=== PATIENT | female | born 1980 | race Caucasian/White ===

== ENCOUNTER 2017-08-18 09:50 | Emergency (ER) | payer SELFPAY ==
--- NOTE | 2017-08-18 10:02 | ER Document Report ---
ED General - General Chief Complaint: Epigastric Pain Stated Complaint: EPIGASTRIC PAIN Time Seen by Provider: 08/18/17 10:02 Mode of Arrival: Ambulatory Information source: Patient Notes: 37 yr odl female presents with multiple complaints. Pt notes she is a smoker with a cough of 6 month duration, has had intermittent chest pain over the past few years and has had epiastric burning pain almost daily for the past few months as well. pt denies any productivity t othe cough, denies any fevers TRAVEL OUTSIDE OF THE [place] IN LAST 30 DAYS: No - HPI Onset: Other Onset/Duration: Persistent Quality of pain: Burning Severity: Mild Pain Level: 1 Associated symptoms: None Exacerbated by: Food Relieved by: Denies Similar symptoms previously: Yes Recently seen / treated by doctor: No - Related Data Allergies/Adverse Reactions: No Known Allergies Allergy (Verified 08/18/17 09:51) Past Medical History - Social History Smoking Status: Current Every Day Smoker Cigarette use (# per day): Yes Chew tobacco use (# tins/day): No Smoking Education Provided: Yes - Patient counselled regarding cessation for 4 minutes Frequency of alcohol use: Social Drug Abuse: None Family History: Reviewed & Not Pertinent Patient has suicidal ideation: No Patient has homicidal ideation: No - Past Medical History Cardiac Medical History: Reports: Hx Hypertension Renal/ Medical History: Denies: Hx Peritoneal Dialysis Past Surgical History: Reports: Hx Cholecystectomy, Hx Tubal Ligation - Immunizations Hx Diphtheria, Pertussis, Tetanus Vaccination: Yes Review of Systems - Review of Systems Notes: REVIEW OF SYSTEMS: CONSTITUTIONAL : Denies fever, chills, or sweats. Denies recent illness. EENT: Denies eye, ear, throat, or mouth pain or symptoms. Denies nasal or sinus congestion or discharge. Denies throat, tongue, or mouth swelling or difficulty swallowing. CARDIOVASCULAR: Admits to chronic chest pain RESPIRATORY: Admits to cough GASTROINTESTINAL: Admits to epigastric pain GENITOURINARY: Denies difficulty urinating, painful urination, burning, frequency, blood in urine, or discharge. FEMALE GENITOURINARY: Denies vaginal bleeding, heavy or abnormal periods, irregular periods. Denies vaginal discharge or odor. MUSCULOSKELETAL: Denies back or neck pain or stiffness. Denies joint pain or swelling. SKIN: Denies rash, lesions or sores. HEMATOLOGIC : Denies easy bruising or bleeding. LYMPHATIC: Denies swollen, enlarged glands. NEUROLOGICAL: Denies confusion or altered mental status. Denies passing out or loss of consciousness. Denies dizziness or lightheadedness. Denies headache. Denies weakness or paralysis or loss of use of either side. Denies problems with gait or speech. Denies sensory loss, numbness, or tingling. Denies seizures. PSYCHIATRIC: Denies anxiety or stress. Denies depression, suicidal ideation, or homicidal ideation. ALL OTHER SYSTEMS REVIEWED AND NEGATIVE. PHYSICAL EXAMINATION: GENERAL: Well-appearing, well-nourished and in no acute distress. HEAD: Atraumatic, normocephalic. EYES: Pupils equal round and reactive to light, extraocular movements intact, conjunctiva are normal. ENT: Nares patent, oropharynx clear without exudates. Moist mucous membranes. NECK: Normal range of motion, supple without lymphadenopathy LUNGS: Breath sounds clear to auscultation bilaterally and equal. No wheezes rales or rhonchi. HEART: Regular rate and rhythm without murmurs ABDOMEN: Soft, epigastric pain upon palpation Female : deferred Musculoskeletal: Normal range of motion, no pitting or edema. No cyanosis. NEUROLOGICAL: Cranial nerves grossly intact. Normal speech, normal gait. Normal sensory, motor exams PSYCH: Normal mood, normal affect. SKIN: Warm, Dry, normal turgor, no rashes or lesions noted. Dictation was performed using [employer] voice recognition software Physical Exam - Vital signs Vitals: Temp Pulse Resp BP Pulse Ox 98.8 F 94 17 166/108 H 98 08/18/17 09:54 08/18/17 09:54 08/18/17 09:54 08/18/17 09:54 08/18/17 09:54 Course - Re-evaluation Re-evalutation: 08/18/17 11:16 I have very low suspicion for any life-threatening issues given that this is all been chronic for months, lab work pending chest x-ray was performed. Patient appears to have GERD given pinpoint tenderness of the epigastric region 08/18/17 13:13 EKG chest x-ray noted no significant abnormality, patient overall looks well no significant improvement with gastric reflux cocktail. I will send her home on Pepcid. Patient otherwise is stable for discharge with follow-up with GI specialist After performing a Medical Screening Examination, I estimate there is LOW risk for RUPTURED ESOPHAGUS, PNEUMOTHORAX, PULMONARY EMBOLISM, ACUTE CORONARY SYNDROME, OR THORACIC AORTIC DISSECTION, thus I consider the discharge disposition reasonable. I have reevaluated this patient multiple times and no significant life threatening changes are noted. The patient and I have discussed the diagnosis and risks, and we agree with discharging home with close follow-up. We also discussed returning to the Emergency Department immediately if new or worsening symptoms occur. We have discussed the symptoms which are most concerning (e.g., bloody sputum, worsening pain or shortness of breath) that necessitate immediate return. - Vital Signs Vital signs: Temp Pulse Resp BP Pulse Ox 98.8 F 94 17 166/108 H 98 08/18/17 09:54 08/18/17 09:54 08/18/17 09:54 08/18/17 09:54 08/18/17 09:54 - Laboratory Result Diagrams: 08/18/17 10:40 08/18/17 10:40 Laboratory results interpreted by me: 08/18/17 10:40 Plt Count 149 L - Diagnostic Test Radiology reviewed: Image reviewed, Reports reviewed - EKG Interpretation by Ga EKG shows normal: Sinus rhythm, [place], Intervals, QRS Complexes Discharge - Discharge Clinical Impression: Cough, Encounter for smoking cessation counseling GERD (gastroesophageal reflux disease) Qualifiers: Esophagitis presence: with esophagitis Qualified Code(s): K21.0 - Gastro- esophageal reflux disease with esophagitis Condition: Stable Disposition: HOME, SELF-CARE Instructions: Reflux Disease (GERD) ([facility]) Prescriptions: Famotidine [Pepcid 20 mg Tablet] 20 mg PO DAILY #30 tablet Referrals: GABBIE ZUÑIGA MD [ACTIVE STAFF] - Follow up tomorrow
--- NOTE | 2017-08-18 10:44 | RADIOLOGY REPORT (SQ) ---
EXAM DESCRIPTION: CHEST PA/LAT COMPLETED DATE/TIME: 08/18/2017 10:32 am REASON FOR STUDY: cough COMPARISON: 11/26/2011 EXAM PARAMETERS: NUMBER OF VIEWS: two views TECHNIQUE: Digital Frontal and Lateral radiographic views of the chest acquired. RADIATION DOSE: NA LIMITATIONS: none FINDINGS: LUNGS AND PLEURA: No opacities, masses or pneumothorax. No pleural effusion. MEDIASTINUM AND HILAR STRUCTURES: No masses or contour abnormalities. HEART AND VASCULAR STRUCTURES: Heart normal size. No evidence for failure. BONES: No acute findings. HARDWARE: None in the chest. OTHER: No other significant finding. IMPRESSION: NO SIGNIFICANT RADIOGRAPHIC FINDING IN THE CHEST. TECHNICAL DOCUMENTATION: JOB ID: [id number] [employer]- All Rights Reserved
[2017-08-18 10:52] LABS: ABSOLUTE EOSINOPHILS # (AUTO) 0.1 10^3/uL (0.0-0.6); ABSOLUTE MONOCYTES (AUTO) 0.5 10^3/uL (0.1-1.4); ABSOLUTE NEUT (AUTO) 6.3 10^3/uL (1.7-8.2); BASOPHILS % (AUTO) 0.3 % (0-2); EOSINOPHILS % (AUTO) 1.2 % (0-6); HEMATOCRIT 43.2 % (36.0-47.0); HEMOGLOBIN 15.5 g/dL (12.0-15.5); HGB HCT DIFFERENCE 3.3; LYMPHOCYTES % (AUTO) 22.1 % (13-45); MEAN CORPUSCULAR HEMOGLOBIN 33.3 pg (27.0-33.4); MEAN CORPUSCULAR HGB CONC 35.8 g/dL (32.0-36.0); MEAN CORPUSCULAR VOLUME 93 fl (80-97); MONOCYTES % (AUTO) 5.7 % (3-13); RED BLOOD COUNT 4.65 10^6/uL (3.72-5.28); RED CELL DISTRIBUTION WIDTH 13.1 % (11.5-14.0); SEGMENTED NEUTROPHILS % (AUTO) 70.7 % (42-78)
[2017-08-18 11:24] LABS: ALANINE AMINOTRANSFERASE 27 U/L (9-52); ALBUMIN 4.2 g/dL (3.5-5.0); ALKALINE PHOSPHATASE 68 U/L (38-126); ANION GAP 11 (5-19); ASPARTATE AMINO TRANSFERASE 21 U/L (14-36); BILIRUBIN,DIRECT 0.1 mg/dL (0.0-0.4); BILIRUBIN,TOTAL 0.7 mg/dL (0.2-1.3); BLOOD UREA NITROGEN 8 mg/dL (7-20); CARBON DIOXIDE 25 mmol/L (22-30); CHLORIDE 107 mmol/L (98-107); CREATININE RESULT 0.62 mg/dL (0.52-1.25); GLUCOSE 89 mg/dL (75-110); LIPASE 59.5 U/L (23-300); POTASSIUM 3.8 mmol/L (3.6-5.0); SODIUM 142.6 mmol/L (137-145); TOTAL PROTEIN 7.1 g/dL (6.3-8.2)
[2017-08-18] MEDS ORDERED: MAG HYDROX/AL HYDROX/SIMETH SUSP 30 ML UDCUP PO ONE (11:41)
[2017-08-18] MEDS ORDERED: LIDOCAINE 2% VISCOUS SOLN 20 ML UDCUP PO ONE (11:41)
[2017-08-18] MEDS ORDERED: METOCLOPRAMIDE HCL ORAL SOLN 10 MG/10 ML UDCUP PO ONE (11:41)
--- NOTE | 2017-08-18 13:35 | EKG REPORT ---
SEVERITY:- NORMAL ECG - SINUS RHYTHM : Confirmed by: Mathieu Stinson 18-Aug-2017 13:34:59
[2017-08-18 13:45] VITALS: BP 144/96
== END 2017-08-18 13:45 | disposition home or self-care (01) ==
LOC: ER 09:50
DX: K21.0 Gastro-esophageal reflux disease with esophagitis (principal); R05 Cough; R10.13 Epigastric pain; R07.9 Chest pain, unspecified; F17.210 Nicotine dependence, cigarettes, uncomplicated
CPT/HCPCS: 93005; 99406; 99284; 36415; 83690; 84703; 85025; 80053; 71020; 93010; J3490

== ENCOUNTER 2018-08-17 18:29 | Emergency (ER) | payer SELFPAY ==
[2018-08-17 19:09] LABS: ABSOLUTE EOSINOPHILS # (AUTO) 0.2 10^3/uL (0.0-0.6); ABSOLUTE LYMPHOCYTES (AUTO) 1.9 10^3/uL (0.5-4.7); ABSOLUTE MONOCYTES (AUTO) 0.9 10^3/uL (0.1-1.4); ABSOLUTE NEUT (AUTO) 11.8 10^3/uL (1.7-8.2); BASOPHILS % (AUTO) 0.3 % (0-2); EOSINOPHILS % (AUTO) 1.1 % (0-6); HEMATOCRIT 43.9 % (36.0-47.0); HEMOGLOBIN 15.2 g/dL (12.0-15.5); LYMPHOCYTES % (AUTO) 12.7 % (13-45); MEAN CORPUSCULAR HEMOGLOBIN 32.1 pg (27.0-33.4); MEAN CORPUSCULAR HGB CONC 34.7 g/dL (32.0-36.0); MEAN CORPUSCULAR VOLUME 93 fl (80-97); MONOCYTES % (AUTO) 6.4 % (3-13); PLATELET COUNT 158 10^3/uL (150-450); RED BLOOD COUNT 4.75 10^6/uL (3.72-5.28); RED CELL DISTRIBUTION WIDTH 12.7 % (11.5-14.0); SEGMENTED NEUTROPHILS % (AUTO) 79.5 % (42-78); TOTAL CELLS COUNTED % (AUTO) 100 %; WHITE BLOOD COUNT 14.8 10^3/uL (4.0-10.5)
[2018-08-17] MEDS ORDERED: ONDANSETRON HCL INJ/PF 4 MG/2 ML SDV IV ONE (19:19)
--- NOTE | 2018-08-17 19:22 | ER Document Report ---
ED General - General Chief Complaint: Overdose Stated Complaint: POSSIBLE OVERDOSE Time Seen by Provider: 08/17/18 18:43 Cannot obtain history due to: Altered mental status Notes: Patient is a 38-year-old female with a past medical history of depression and anxiety which is not currently being treated who presents after an intentional overdose of an uncertain quantity of Tylenol-containing cough and flu remedies. This occurred approximately 10 minutes prior to EMS arrival. The patient states that she did this in a suicide attempt "because I wanted my to see me for who I am not some crazy person". She denies any current symptoms. She is otherwise quite a guarded historian and appears to have some degree of intoxication from her overdose today. History is limited secondary to this confounding factor. TRAVEL OUTSIDE OF THE [place] IN LAST 30 DAYS: No - Related Data Allergies/Adverse Reactions: No Known Allergies Allergy (Verified 02/26/18 11:21) Past Medical History - General Information source: Patient, Relative - Social History Smoking Status: Never Smoker Frequency of alcohol use: None Drug Abuse: None Lives with: Spouse/Significant other Family History: Reviewed & Not Pertinent Patient has suicidal ideation: Yes Patient has homicidal ideation: No - Past Medical History Cardiac Medical History: Reports: Hx Hypertension Renal/ Medical History: Denies: Hx Peritoneal Dialysis Past Surgical History: Reports: Hx Cholecystectomy, Hx Tubal Ligation - Immunizations Hx Diphtheria, Pertussis, Tetanus Vaccination: Yes Review of Systems - Review of Systems Notes: Constitutional: Negative for fever. HENT: Negative for sore throat. Eyes: Negative for visual changes. Cardiovascular: Negative for chest pain. Respiratory: Negative for shortness of breath. Gastrointestinal: Negative for abdominal pain, vomiting or diarrhea. Genitourinary: Negative for dysuria. Musculoskeletal: Negative for back pain. Skin: Negative for rash. Neurological: Negative for headaches, weakness or numbness. 10 point ROS negative except as marked above and in HPI. Physical Exam - Vital signs Vitals: Temp Resp BP Pulse Ox 97.9 F 27 H 161/107 H 98 08/17/18 18:47 08/17/18 18:47 08/17/18 18:47 08/17/18 18:47 Notes: PHYSICAL EXAMINATION: GENERAL: Tearful, HEAD: Atraumatic, normocephalic. EYES: Pupils equal round and reactive to light, extraocular movements intact, sclera anicteric, conjunctiva are normal. ENT: nares patent, oropharynx clear without exudates. Moderately dry mucous membranes. NECK: Normal range of motion, supple without lymphadenopathy LUNGS: Breath sounds clear to auscultation bilaterally and equal. No wheezes rales or rhonchi. HEART: Regular rate and rhythm without murmurs ABDOMEN: Soft, nontender, normoactive bowel sounds. No guarding, no rebound. No masses appreciated. EXTREMITIES: Normal range of motion, no pitting or edema. No cyanosis. NEUROLOGICAL: No focal neurological deficits. Moves all extremities spontaneously and on command. PSYCH: Anxious, tearful, expressing suicidal ideation SKIN: Warm, Dry, normal turgor, no rashes or lesions noted. Course - Re-evaluation Re-evalutation: 08/17/18 19:21 Patient presents after an intentional overdose of multiple Tylenol containing cough and cold medications. She presents somewhat somnolent but otherwise oriented x4, able to provide a cogent history. Does admit that this was a suicide attempt. Ingestion was approximately 10 minutes prior to EMS arrival. Patient has already received activated charcoal although did apparently vomit. Initial vitals are within normal limits. EKG unremarkable. Patient has been placed on involuntary commitment given what appears to be a serious suicide attempt. The patient will receive an initial Tylenol level as well as a 4-hour Tylenol level to determine whether or not she needs N-acetylcysteine therapy. Poison control has been contacted. She will remain on continuous monitor. 08/17/18 20:03 Initial Tylenol level has returned at 71. Will await 4-hour Tylenol redraw. Patient's vitals are within normal limits with the exception of hypertension. Will continue to monitor closely 08/17/18 23:33 Patient's Tylenol level has decreased to 44. She is now medically cleared for going to the psychiatric side and can be dispositioned via behavioral health recommendations. - Vital Signs Vital signs: Temp Pulse Resp BP Pulse Ox 97.9 F 28 H 139/84 H 97 08/17/18 18:47 08/17/18 19:01 08/17/18 19:01 08/17/18 19:01 - Laboratory Result Diagrams: 08/17/18 18:05 08/17/18 18:05 Laboratory results interpreted by me: 08/17/18 08/17/18 08/17/18 18:05 18:05 22:05 WBC 14.8 H Seg Neutrophils % 79.5 H Lymphocytes % 12.7 L Absolute Neutrophils 11.8 H Potassium 3.4 L Glucose 74 L Direct Bilirubin 0.5 H Salicylates < 1.0 L Acetaminophen 71 H 44 H Discharge - Discharge Clinical Impression: Suicide attempt Tylenol overdose Qualifiers: Encounter type: initial encounter Injury intent: intentional self-harm Qualified Code(s): T39.1X2A - Poisoning by 4-Aminophenol derivatives, intentional self-harm, initial encounter
[2018-08-17 19:28] LABS: APPEARANCE,URINE SLIGHTLY-CLOUDY; BILIRUBIN,URINE NEGATIVE (NEGATIVE); COLOR,URINE YELLOW; GLUCOSE, URINE NEGATIVE (NEGATIVE); KETONES,URINE NEGATIVE (NEGATIVE); LEUKOCYTE ESTERASE,URINE NEGATIVE (NEGATIVE); NITRITE,URINE NEGATIVE (NEGATIVE); PROTEIN,URINE NEGATIVE (NEGATIVE); URINE SPECIFIC GRAVITY 1.009; UROBILINOGEN,URINE NEGATIVE mg/dL (<2.0)
[2018-08-17 19:39] LABS: ACETAMINOPHEN 71 ug/mL (10-30); ALANINE AMINOTRANSFERASE 15 U/L (9-52); ALBUMIN 4.3 g/dL (3.5-5.0); ALKALINE PHOSPHATASE 74 U/L (38-126); ANION GAP 12 (5-19); ASPARTATE AMINO TRANSFERASE 28 U/L (14-36); BILIRUBIN,DIRECT 0.5 mg/dL (0.0-0.4); BILIRUBIN,TOTAL 0.7 mg/dL (0.2-1.3); BLOOD UREA NITROGEN 9 mg/dL (7-20); CALCIUM 9.7 mg/dL (8.4-10.2); CARBON DIOXIDE 23 mmol/L (22-30); CHLORIDE 106 mmol/L (98-107); GLUCOSE 74 mg/dL (75-110); POTASSIUM 3.4 mmol/L (3.6-5.0); SODIUM 140.7 mmol/L (137-145); TOTAL PROTEIN 7.5 g/dL (6.3-8.2)
[2018-08-17 19:43] LABS: ALCOHOL < 10 mg/dL (NONE DETECTED); SALICYLATE < 1.0 mg/dL (2.0-20.0)
[2018-08-17 19:48] LABS: URINE AMPHETAMINES SCREEN NEGATIVE; URINE BARBITURATES SCREEN NEGATIVE; URINE BENZODIAZEPINES SCREEN NEGATIVE; URINE COCAINE SCREEN NEGATIVE; URINE MARIJUANA (THC) SCREEN NEGATIVE; URINE METHADONE SCREEN NEGATIVE; URINE PHENCYCLIDINE SCREEN NEGATIVE
--- NOTE | 2018-08-18 07:45 | EKG REPORT ---
SEVERITY:- ABNORMAL ECG - SINUS RHYTHM CONSIDER LEFT VENTRICULAR HYPERTROPHY : Confirmed by: Rosa Atwood MD 18-Aug-2018 07:44:21
--- NOTE | 2018-08-18 09:43 | ER Document Report ---
Doctor's Note Notes: 08/18/18 09:43 38-year-old female with ingestion of Tylenol containing products secondary to suicidal attempt. 4-hour Tylenol below the level of toxicity by the normal gram. Vital signs are stable. Labs otherwise as recorded. Awaiting psychology /psychiatry evaluation and disposition.
--- NOTE | 2018-08-18 11:10 | PSYCHOLOGICAL NOTE ---
Psych Note - Psych Note Date seen by psych provider: 08/18/18 Time seen by psych provider: 08:00 Psych Note: Reason for Consult: Intentional overdose Consent Permissions: , Fausto, at bedside per patient's request Patient is a 38-year-old female with a past medical history of depression and anxiety which is not currently being treated who presents after an intentional overdose of an uncertain quantity of Tylenol-containing cough and flu remedies. Patient reports she came to [facility] ED via EMS because she took too many pills. She states that she got upset and overwhelmed. She reports that it happened before however "not to that extent." She disclosed that she always has suicidal ideation however is never followed through with her thoughts before. She denies having outpatient mental provider or being on any medications. She has been inpatient psychiatric treatment once previously approximately 3 and half years ago while living in [place]. She reports that it was when her moved back to [place] without her and the kids and she disclosed to staff that she was having suicidal ideation. She reports that they asked her if she felt safe to go home at which she reported she did not. She states that she honestly felt worse going inpatient and felt nothing was accomplished by it. She discloses that she feels sad all the time however lately she seems to be unable to balance her emotions; "I have a lot of ups and downs every day used to be able to control it before but lately I cannot." She disclosed that immediately after taking it she knew it was "not a good idea I needed to be there for my kids and family." Patient denies current thoughts of wanting to harm herself and reports that she feels the most help that she can receive is having someone to talk to; "I hold it all in until I explode I really need just someone to go and I can talk to." Patient is alert and orientated to person, place, time and circumstance. Mood is dysphoric with tearful affect. Patient confirms intentional overdose with intent to harm herself denies current thoughts of harming herself. Patient denies homicidal ideation. Delusions are absent behaviors congruent with an intact reality based presentation I organized and linear thought process. Eye contact is fair. Conversational speech was within normal rate, tone and prosody. Intellectual abilities appear to be within the average range. Attention and concentration are fair. Insight, judgment, impulse control is fair. Diagnosis 311 (F32.9) unspecified depressive disorder per history provided by patient 300.00 (F41.9) unspecified anxiety disorder per history provided by patient Impression\\plan: Patient is recommended to continue under IVC. Patient admits to intentionally overdose with intent to harm herself. Patient is able to identify her trigger trigger, an argument with her . Patient is currently dysphoric with tearful affect and reports difficulty in controlling her moods. Patient will be reevaluated. Dr. Gray was consulted care management of this patient; attending physicians agreement with recommendations and disposition.
[2018-08-18] MEDS: OLANZAPINE 5 MG TABLET PO SCH ×2 (13:44→17:48)
[2018-08-18] MEDS: BENZTROPINE MESYLATE 1 MG TABLET PO SCH (13:44)
--- NOTE | 2018-08-19 09:29 | ER Document Report ---
Doctor's Note Notes: 08/19/18 09:28 This is a 38-year-old female with a history of a mood disorder who presented after a Tylenol overdose. The patient immediately regretted the gesture shortly after taking the Tylenol. She was started on Zyprexa and Cogentin and she has improved significantly since being in the ER. She is followed by psychology. She has had stable vital signs and her labs have been relatively good. The plan will be for discharge with Zyprexa and Cogentin and the patient is being referred to [facility].
[2018-08-19] MEDS: OLANZAPINE 5 MG TABLET PO SCH (10:07)
[2018-08-19] MEDS: BENZTROPINE MESYLATE 1 MG TABLET PO SCH (10:08)
--- NOTE | 2018-08-19 10:29 | PSYCHOLOGICAL NOTE ---
Psych Note - Psych Note Date seen by psych provider: 08/19/18 Time seen by psych provider: 08:50 Psych Note: Reason for Consult: Intentional overdose Consent Permissions: , Fausto, at bedside per patient's request Patient is a 38-year-old female with a past medical history of depression and anxiety which is not currently being treated who presents after an intentional overdose of an uncertain quantity of Tylenol-containing cough and flu remedies. Check in conducted with patient Patient reports she is feeling "way better...more positive." She disclosed that she is surprised the difference the medications makes. She confirms she would like to receive outpatient mental health services both medication management and therapeutic services. She denies any thoughts of harming her self or others. Mood is euthymic with congruent affect as evidenced by smiling and engaging with clinician. Diagnosis 311 (F32.9) unspecified depressive disorder per history provided by patient 300.00 (F41.9) unspecified anxiety disorder per history provided by patient Impression\\plan: Patient is recommended for rescind of IVC and is cleared from acute psychiatric services. Patient's mood and presentation has improved today, she is euthymic with congruent affect as evidenced by smiling and engaging with clinician. She reports she feels much better on mediation and states she will continue taking medication and would like to engage in outpatient therapeutic services. Patient's reports he is comfortable with the plan for discharge and has no concerns. He states he will be part of the patient plan of care ie ensure she does not have access to medications and weapons and follows through with mental health recommendations. Dr. Gray was consulted care management of this patient; attending physicians agreement with recommendations and disposition.
[2018-08-19 12:40] VITALS: BP 149/84
== END 2018-08-19 12:53 | disposition home or self-care (01) ==
LOC: ER 18:29
DX: T39.1X2A Poisoning by 4-Aminophenol derivatives, intentional self-harm, initial encounter (principal); F39 Unspecified mood [affective] disorder; X83.8XXA Intentional self-harm by other specified means, initial encounter; F41.9 Anxiety disorder, unspecified; I10 Essential (primary) hypertension; Z90.49 Acquired absence of other specified parts of digestive tract; Z98.51 Tubal ligation status
CPT/HCPCS: 93005; 99285; 96374; 36415; 80307 ×4; 84703; 85025; 80053; 81001; 93010; J2405

== ENCOUNTER 2018-09-20 09:43 | Emergency (ER) | payer SELFPAY ==
[2018-09-20 09:52] VITALS: BP 149/99
--- NOTE | 2018-09-20 10:08 | ER Document Report ---
ED General - General Chief Complaint: Medication Refill Stated Complaint: MEDICATION REFILL Time Seen by Provider: 09/20/18 09:48 Mode of Arrival: Ambulatory Information source: Patient Notes: This is a 38-year-old female with a history of Tylenol overdose 1 month ago in the setting of undifferentiated depression. Patient was placed on Zyprexa and Cogentin at that time and she improved while she was in the emergency room and she was discharged with outpatient follow-up. She was given a prescription for Cogentin and Zyprexa at that time. She presents today after having run out of the medicines. She does have a appointment with integrated [facility] services for September 27 at 9 in the morning. She states that she is definitely improved with that medicine. She denies any suicidal ideations at that time. TRAVEL OUTSIDE OF THE [place] IN LAST 30 DAYS: No - HPI Onset: Other - Past month Onset/Duration: Gradual Quality of pain: No pain Severity: None Pain Level: Denies Associated symptoms: denies: Chest pain, Fever, Shortness of breath Exacerbated by: Denies Relieved by: Denies Similar symptoms previously: Yes Recently seen / treated by doctor: Yes - Related Data Allergies/Adverse Reactions: No Known Allergies Allergy (Verified 09/20/18 09:45) Past Medical History - General Information source: Patient - Social History Smoking Status: Current Every Day Smoker Cigarette use (# per day): Yes - Patient smokes 2 pack/day Chew tobacco use (# tins/day): No Smoking Education Provided: Yes - 3 minutes Frequency of alcohol use: None Drug Abuse: None Lives with: Spouse/Significant other Family History: Reviewed & Not Pertinent Patient has suicidal ideation: No Patient has homicidal ideation: No - Past Medical History Cardiac Medical History: Reports: Hx Hypertension Renal/ Medical History: Denies: Hx Peritoneal Dialysis Past Surgical History: Reports: Hx Cholecystectomy, Hx Tubal Ligation - Immunizations Hx Diphtheria, Pertussis, Tetanus Vaccination: Yes Review of Systems - Review of Systems Constitutional: denies: Chills, Fever EENT: No symptoms reported Cardiovascular: denies: Chest pain, Palpitations, Heart racing Respiratory: No symptoms reported Gastrointestinal: denies: Abdomen distended, Abdominal pain Genitourinary: No symptoms reported Female Genitourinary: No symptoms reported Musculoskeletal: No symptoms reported Skin: No symptoms reported Hematologic/Lymphatic: No symptoms reported Neurological/Psychological: See HPI. denies: Depression, Homicidal ideation, Suicidal ideation Physical Exam - Vital signs Vitals: Temp Pulse Resp BP Pulse Ox 98.2 F 82 19 149/99 H 100 09/20/18 09:50 09/20/18 09:50 09/20/18 09:50 09/20/18 09:50 09/20/18 09:50 Notes: Physical exam: GENERAL: She is blood pressure is 149/99, she is alert and oriented x3, her pulse is 82 and respiratory rate 19. Her oxygen saturation is 100% on room air. She is afebrile. She is sitting in the chair, appears comfortable and is in no distress. HEAD: Atraumatic, normocephalic. EYES: Pupils equal round and reactive to light, extraocular movements intact, sclera anicteric, conjunctiva are normal. ENT: TMs normal, nares patent, oropharynx clear without exudates. Moist mucous membranes. NECK: Normal range of motion, supple without obvious mass or JVD. LUNGS: Breath sounds clear to auscultation bilaterally and equal. No wheezes rales or rhonchi. HEART: Regular rate and rhythm without murmurs, rubs or gallops. ABDOMEN: Soft, normoactive bowel sounds. No tenderness to palpation. No guarding, no rebound. No masses appreciated. EXTREMITIES: Normal range of motion, no pitting or edema. No clubbing or cyanosis. NEUROLOGICAL: Cranial nerves II through XII grossly intact. Normal speech, moving all extremities. PSYCH: Normal mood, normal affect. SKIN: Warm, Dry, normal turgor, no rashes or lesions noted. Course - Vital Signs Vital signs: Temp Pulse Resp BP Pulse Ox 98.2 F 82 19 149/99 H 100 09/20/18 09:50 09/20/18 09:50 09/20/18 09:50 09/20/18 09:50 09/20/18 09:50 Discharge - Discharge Clinical Impression: Depression, Hypertension Condition: Stable Disposition: HOME, SELF-CARE Additional Instructions: As we discussed, follow-up with [facility] on September 27 at 9 AM as planned. Continue current medicines. Think about trying to cut down on the smoking and I do want you to try and call for an appointment in the [facility] for repeat blood pressure check. Return to the emergency room for any worsening thoughts of depression, any chest pain, shortness of breath or any concerns that you are getting worse. Prescriptions: Benztropine Mesylate [Cogentin 1 mg Tablet] 1 tab PO DAILY #30 tab Olanzapine [Zyprexa 5 mg Tablet] 5 mg PO Q12 #60 tablet Forms: Smoking Cessation Education, Elevated Blood Pressure Referrals: [facility] [Provider Group] - Follow up as needed (This is the number the free [facility]: Should follow-up to get blood pressure check.)
== END 2018-09-20 10:11 | disposition home or self-care (01) ==
LOC: ER 09:43
DX: F32.9 Major depressive disorder, single episode, unspecified (principal); I10 Essential (primary) hypertension; F17.210 Nicotine dependence, cigarettes, uncomplicated
CPT/HCPCS: 99281

== ENCOUNTER 2019-09-08 08:45 | Emergency (ER) | payer OTHER ==
[2019-09-08] MEDS ORDERED: LIDOCAINE 5% (700 MG) TRANSDERMAL ADH..PATCH TP ONE (09:34)
[2019-09-08] MEDS ORDERED: KETOROLAC TROMETHAMINE 60 MG/2 ML SDV IM ONE (09:34)
[2019-09-08] MEDS ORDERED: CYCLOBENZAPRINE HCL 10 MG TABLET PO ONE (09:34)
[2019-09-08] MEDS ORDERED: DEXAMETHASONE SOD PHOS INJ 10 MG/1 ML VIAL IM ONE (09:34)
--- NOTE | 2019-09-08 10:00 | ER Document Report ---
HPI - HPI Time Seen by Provider: 09/08/19 09:15 Pain Level: 5 Notes: Patient is a 39-year-old female with no significant past medical history who presents to the ED complaining of bilateral lower back pain times 2 days without obvious injury. Patient states that she does lift objects at work and started feeling tightness throughout the day. Patient states that bending twisting of the trunk make pain worse. Pain does not radiate. Eating and drinking without any difficulties. Urinating normally and having normal bowel movements. Has not had any injections or procedures to his lower back. Denies any IV drug abuse. No other concerns or complaints. Denies any headache, fever, head injury, neck pain, changes in vision/speech/mentation/hearing, URI, sore throat, chest pain, palpitations, syncope, cough, shortness of breath, wheeze, dyspnea, abdominal pain, nausea/vomiting/diarrhea, urinary retention, dysuria, hematuria, loss of control of bowel or bladder, numbness/tingling, saddle anesthesia, muscle paralysis/weakness, or rash. - REPRODUCTIVE Reproductive: DENIES: : Past Medical History - General Information source: Patient - Social History Smoking Status: Current Every Day Smoker Chew tobacco use (# tins/day): No Frequency of alcohol use: None Drug Abuse: None Family History: Reviewed & Not Pertinent Patient has suicidal ideation: No Patient has homicidal ideation: No - Past Medical History Cardiac Medical History: Reports: Hx Hypertension - not on meds Renal/ Medical History: Denies: Hx Peritoneal Dialysis Psychiatric Medical History: Reports: Hx Depression Past Surgical History: Reports: Hx Cholecystectomy, Hx Tubal Ligation - Immunizations Hx Diphtheria, Pertussis, Tetanus Vaccination: Yes Vertical Provider Document - CONSTITUTIONAL Notes: PHYSICAL EXAMINATION: GENERAL: Well-appearing, well-nourished and in no acute distress. LUNGS: Breath sounds clear to auscultation bilaterally and equal. No wheezes rales or rhonchi. HEART: Regular rate and rhythm without murmurs, rubs, gallops. ABDOMEN: Soft, nontender, nondistended abdomen. No guarding, no rebound. No masses appreciated. Normal bowel sounds present. No CVA tenderness bilaterally. No pulsatile mass Musculoskeletal: LE's b/l: FROM to passive/active. Strength 5+/5. No deficits noted. No bony tenderness of extremities. Back: FROM to passive/active. Strength 5+/5. No vertebral point tenderness, stepoffs, or deformities. No other bony tenderness, erythema, swelling, or ecchymosis. SLR negative b/l. + mild tenderness to the L-paraspinal mm b/l. Mild spasming. No SI jt tenderness. No foot drop Extremities: No cyanosis, clubbing, or edema b/l. Peripheral pulses 2+. Capillary refill less than 2 seconds. NEUROLOGICAL: Normal speech, ataxic gait. Normal sensory, motor exams. Reflexes 2+ b/l. PSYCH: Normal mood, normal affect. SKIN: Warm, Dry, normal turgor, no rashes or lesions noted. - INFECTION CONTROL TRAVEL OUTSIDE OF THE [place] IN LAST 30 DAYS: No Course - Re-evaluation Re-evalutation: Patient is an afebrile, well-hydrated, 39-year-old female who presents to the ED with acute low back pain. Vitals are acceptable. PE is otherwise unremarkable for any focal neurological deficits. Patient was given medications here in the ED for symptoms. She has no significant tachycardia, tachypnea, or hypoxia. She is nontoxic-appearing and is tolerating p.o. without difficulties. There are no signs of infection. No other red flag symptoms noted. No other labs or imaging warranted at this time based on H&P. Low suspicion for any meningitis, fracture, expanding/ruptured AAA, cauda equina syndrome, epidural mass lesion/abscess, herniated disc causing severe spinal stenosis, or other systemic infection at this time. Patient is aware that this condition can change from initial presentation and that she needs monitor symptoms closely for any acute changes. I will send her home with a prescription for muscle relaxer. Conservative measures otherwise for symptoms. Recheck with your PCM in 3-5 days. Consider consult with orthopedic/physical therapy. Return to the ED with any worsening/concerning symptoms otherwise as reviewed discharge. Patient is in agreement. - Vital Signs Vital signs: Temp Pulse Resp BP Pulse Ox 98.6 F 79 16 161/106 H 99 09/08/19 08:49 09/08/19 08:49 09/08/19 08:49 09/08/19 08:49 09/08/19 08:49 Discharge - Discharge Clinical Impression: Low back pain Qualifiers: Chronicity: acute Back pain laterality: unspecified Sciatica presence: with sciatica Sciatica laterality: sciatica of right side Qualified Code(s): M54.41 - Lumbago with sciatica, right side Condition: Stable Disposition: HOME, SELF-CARE Additional Instructions: You have been seen in the Emergency Department (ED) today for back pain. Your workup and exam have not shown any acute abnormalities and you are likely suffering from muscle strain or possible problems with your discs, but there is no treatment that will fix your symptoms at this time. Please take the muscle relaxer that has been prescribed as directed. You should also purchase a local lidocaine cream such as "aspercreme with lidocaine" and use per bottle instructions to the affected area. Apply heat to the area as often as you are able. Continue to keep active and avoid prolonged periods of bed rest. Please follow up with your doctor as soon as possible regarding today's ED visit and your back pain. Return to the ED for worsening back pain, fever, weakness or numbness of either leg, or if you develop either (1) an inability to urinate or have bowel movements, or (2) loss of your ability to control your bathroom functions (if you start having "accidents"), or if you develop other new symptoms that concern you.concern you. Prescriptions: Cyclobenzaprine HCl [Flexeril 10 mg Tablet] 10 mg PO TIDP PRN #20 tab PRN Reason: Forms: Special Work Note, Return to Work
[2019-09-08 10:58] VITALS: BP 146/97
== END 2019-09-08 10:58 | disposition home or self-care (01) ==
LOC: ER 08:45
DX: M54.41 Lumbago with sciatica, right side (principal); F17.200 Nicotine dependence, unspecified, uncomplicated; I10 Essential (primary) hypertension; Z90.49 Acquired absence of other specified parts of digestive tract; Z98.51 Tubal ligation status
CPT/HCPCS: 99283; 96372; J1885; J1100

== ENCOUNTER 2019-10-06 20:49 | Emergency (ER) | payer SELFPAY ==
--- NOTE | 2019-10-06 21:32 | ER Document Report ---
ED Medical Screen (RME) - General Stated Complaint: FEVER/SORE THROAT Time Seen by Provider: 10/06/19 21:25 Notes: 39 y/o female presents for sore throat, fever, productive cough with phlegm. RRR> lungs clear to auscultation bilaterally. Pt is very hypertensive in triage. I have greeted and performed a rapid initial assessment of this patient. A comprehensive ED assessment and evaluation of the patient, analysis of test results and completion of the medical decision making process with be conducted by additional ED providers. TRAVEL OUTSIDE OF THE [place] IN LAST 30 DAYS: No - Related Data Allergies/Adverse Reactions: No Known Allergies Allergy (Verified 09/08/19 08:50) Past Medical History - Past Medical History Cardiac Medical History: Reports: Hx Hypertension - not on meds Renal/ Medical History: Denies: Hx Peritoneal Dialysis Psychiatric Medical History: Reports: Hx Depression Past Surgical History: Reports: Hx Cholecystectomy, Hx Tubal Ligation - Immunizations Hx Diphtheria, Pertussis, Tetanus Vaccination: Yes
[2019-10-06 21:53] LABS: APPEARANCE,URINE CLEAR; BILIRUBIN,URINE NEGATIVE (NEGATIVE); COLOR,URINE YELLOW; GLUCOSE, URINE NEGATIVE (NEGATIVE); KETONES,URINE NEGATIVE (NEGATIVE); PROTEIN,URINE NEGATIVE (NEGATIVE); URINE SPECIFIC GRAVITY 1.014; UROBILINOGEN,URINE NEGATIVE mg/dL (<2.0)
--- NOTE | 2019-10-06 22:02 | RADIOLOGY REPORT (SQ) ---
EXAM DESCRIPTION: XR CHEST 2 VIEWS COMPLETED DATE/TME: 10/06/2019 21:25 CLINICAL HISTORY: 39 years, Female, cough, fever COMPARISON: August 18, 2017 NUMBER OF VIEWS: 2 TECHNIQUE: LIMITATIONS: None. FINDINGS: Cardiomediastinal silhouette is normal. Mild chronic parenchymal lung change. No acute process. No effusion. No pneumothorax IMPRESSION: No active disease. No adverse change copyright 2010 [employer]- All Rights Reserved
[2019-10-06 22:14] LABS: A TYPE INFLUENZA AG NEGATIVE (NEGATIVE); B INFLUENZA AG NEGATIVE (NEGATIVE)
--- NOTE | 2019-10-06 22:26 | ER Document Report ---
ED General - General Chief Complaint: Sore Throat Stated Complaint: FEVER/SORE THROAT Time Seen by Provider: 10/06/19 21:25 Primary Care Provider: [facility] [Provider Group] - Follow up as needed LINCOLN VIZCAINO DA [DENTAL CLINICAL INFORMATION SYSTEMS DIRECTOR] - Follow up as needed OUSMANE MCKNIGHT DDS [NO LOCAL MD] - Follow up as needed YARON STEWART DDS [NO LOCAL MD] - Follow up as needed KANG PENNY DDS [NO LOCAL MD] - Follow up as needed MEKA VARGAS MD [ACTIVE STAFF] - Follow up as needed MARLENE MONGE DMD [NO LOCAL MD] - Follow up as needed VIKKI PINO DDS [ACTIVE STAFF] - Follow up as needed ROMIE BAUTISTA CDA [DENTAL CLINICAL INFORMATION SYSTEMS DIRECTOR] - Follow up as needed ABBY BETTENCOURT DDS [NO LOCAL MD] - Follow up as needed Notes: 39 y/o female with history of hypertension not currently on medications presents for sore throat, fever, productive cough with phlegm for 5 days. Patient states the highest her fever got was 100 degrees. Patient also states she cracked her tooth yesterday and has some pain from that. Patient also states enlarged lymph node on the right side of her neck. Patient denies any abdominal pain, chest pain, dyspnea, weakness, nausea/vomiting. TRAVEL OUTSIDE OF THE [place] IN LAST 30 DAYS: No - Related Data Allergies/Adverse Reactions: No Known Allergies Allergy (Verified 09/08/19 08:50) Past Medical History - Social History Smoking Status: Current Every Day Smoker Family History: Reviewed & Not Pertinent Patient has suicidal ideation: No Patient has homicidal ideation: No - Past Medical History Cardiac Medical History: Reports: Hx Hypertension - not on meds Renal/ Medical History: Denies: Hx Peritoneal Dialysis Psychiatric Medical History: Reports: Hx Depression Past Surgical History: Reports: Hx Cholecystectomy, Hx Tubal Ligation - Immunizations Hx Diphtheria, Pertussis, Tetanus Vaccination: Yes Review of Systems - Review of Systems Notes: Constitutional: Positive for fever. HENT: Positive for sore throat, dental pain, enlarged lymph node, productive cough. Eyes: Negative for visual changes. Cardiovascular: Negative for chest pain. Respiratory: Negative for shortness of breath. Gastrointestinal: Negative for abdominal pain, vomiting or diarrhea. Genitourinary: Negative for dysuria. Musculoskeletal: Negative for back pain. Skin: Negative for rash. Neurological: Negative for headaches, weakness or numbness. 10 point ROS negative except as marked above and in HPI. Physical Exam - Vital signs Vitals: Temp Pulse Resp BP Pulse Ox 98.4 F 90 20 178/113 H 97 10/06/19 21:04 10/06/19 21:04 10/06/19 21:04 10/06/19 21:04 10/06/19 21:04 - Notes Notes: GENERAL: Well-appearing, well-nourished and in no acute distress. HEAD: Atraumatic, normocephalic. EYES: Pupils equal round and reactive to light, extraocular movements intact, sclera anicteric, conjunctiva are normal. ENT: Nares patent, oropharynx clear without exudates. Moist mucous membranes. Uvula midline without edema. No trismus. No muffled voice. Fractured tooth seen at #32. Speaks full sentences without difficulty. NECK: Normal range of motion, supple without JVD. Right enlarged lymph nodes. LUNGS: Breath sounds clear to auscultation bilaterally and equal. No wheezes rales or rhonchi. HEART: Regular rate and rhythm without murmurs, rubs or gallops. EXTREMITIES: Normal range of motion, no pitting or edema. No clubbing or cyanosis. NEUROLOGICAL: Cranial nerves II through XII grossly intact. Normal speech, normal gait. Grain Broker strength equal bilaterally. Upper extremity strength equal bilaterally. No pronator drift. Lower extremity strength equal bilaterally. Sensory intact bilaterally. No facial droop. No tongue deviation. PERRLA. EOM intact. PSYCH: Normal mood, normal affect. SKIN: Warm, Dry, normal turgor, no rashes or lesions noted. Course - Re-evaluation Re-evalutation: 10/06/19 nontoxic, well-appearing 39-year-old female presents with viral URI symptoms and fractured tooth. No trismus. No muffled voice. Uvula midline without edema. No METHODS EXAMINER. Patient is afebrile. Patient is non-tachycardic. Patient is found to be hypertensive however neuro grossly intact. Pt is supposed to be on hypertensive medication but has not been on them for 2 years, does not remember what she took. Patient denies any chest pain, dyspnea, or weakness. Patient has no signs of endorgan damage on exam. Flu test is negative. Strep test is negative. Chest x-ray shows no pneumonia. Discussed with attending who recommended HCTZ for 2 weeks and follow close follow-up with PCP. Patient put on Augmentin due to fractured tooth. Strict return precautions given. Patient given follow-up with PCP and with multiple dentist. Patient voices understanding and agrees with plan of care. - Vital Signs Vital signs: Temp Pulse Resp BP Pulse Ox 98.1 F 84 18 207/123 H 96 10/06/19 22:31 10/06/19 22:31 10/06/19 22:31 10/06/19 22:31 10/06/19 22:31 Discharge - Discharge Clinical Impression: URI (upper respiratory infection) Qualifiers: URI type: unspecified viral URI Qualified Code(s): J06.9 - Acute upper respiratory infection, unspecified Fractured tooth Qualifiers: Encounter type: initial encounter Fracture type: closed Qualified Code(s): S02.5XXA - Fracture of tooth (traumatic), initial encounter for closed fracture Condition: Stable Disposition: HOME, SELF-CARE Instructions: Upper Respiratory Illness ([facility]) Additional Instructions: Please take Augmentin as prescribed and finish all doses even if you feel better. Please take cough medication as prescribed. Please avoid [id number] cough medicine, except Coricidin HBP, as cough medication will raise your blood pressure. Please follow-up with dentist in 1 week. Please follow-up with 1 of the clinics listed in 3 to 5 days to establish a primary care doctor. It is very important to make sure that you take your blood pressure medicine. Return immediately for any worsening symptoms, including fever, weakness, headache, visual changes, chest pain, shortness of breath, nausea/vomiting, or any other symptoms that are concerning to you. Prescriptions: Benzonatate [Tessalon Perles 100 mg Capsule] 100 mg PO Q8HP PRN #40 capsule PRN Reason: Amox Tr/Potassium Clavulanate [Augmentin 500-125 Tablet] 1 each PO BID #14 tablet Hydrochlorothiazide [Hydrodiuril 25 mg Tablet] 25 mg PO QAM #14 tablet Referrals: MEKA VARGAS MD [ACTIVE STAFF] - Follow up as needed [facility] [Provider Group] - Follow up as needed OUSMANE MCKNIGHT DDS [NO LOCAL MD] - Follow up as needed YARON STEWART DDS [NO LOCAL MD] - Follow up as needed ROMIE BAUTISTA, CDA [DENTAL CLINICAL INFORMATION SYSTEMS DIRECTOR] - Follow up as needed KANG PENNY DDS [NO LOCAL MD] - Follow up as needed LINCOLN VIZCAINO, DA [DENTAL CLINICAL INFORMATION SYSTEMS DIRECTOR] - Follow up as needed ABBY BETTENCOURT DDS [NO LOCAL MD] - Follow up as needed VIKKI PINO DDS [ACTIVE STAFF] - Follow up as needed MARLENE MONGE DMD [NO LOCAL MD] - Follow up as needed
[2019-10-06 22:34] VITALS: BP 207/123
[2019-10-06] MEDS ORDERED: HYDROCHLOROTHIAZIDE 25 MG TABLET PO ONE (22:35)
[2019-10-06] MEDS ORDERED: ACETAMINOPHEN 325 MG TABLET PO ONE (22:40)
== END 2019-10-06 22:50 | disposition home or self-care (01) ==
LOC: ER 20:49
DX: S02.5XXA Fracture of tooth (traumatic), initial encounter for closed fracture (principal); X58.XXXA Exposure to other specified factors, initial encounter; J06.9 Acute upper respiratory infection, unspecified; R50.9 Fever, unspecified; K08.9 Disorder of teeth and supporting structures, unspecified; F17.200 Nicotine dependence, unspecified, uncomplicated; Z90.49 Acquired absence of other specified parts of digestive tract; Z98.51 Tubal ligation status
CPT/HCPCS: 71046; 81001; 81025; 87070; 87804; 87880; 99283

== ENCOUNTER 2019-10-13 20:08 | Emergency (ER) | payer SELFPAY ==
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
[2019-10-13 21:28] LABS: APPEARANCE,URINE CLOUDY; BILIRUBIN,URINE NEGATIVE (NEGATIVE); COLOR,URINE AMBER; GLUCOSE, URINE NEGATIVE (NEGATIVE); KETONES,URINE TRACE mg/dL (NEGATIVE); PROTEIN,URINE 30 mg/dL (NEGATIVE); URINE SPECIFIC GRAVITY 1.025
[2019-10-13 21:35] LABS: ABSOLUTE EOSINOPHILS # (AUTO) 0.1 10^3/uL (0.0-0.6); ABSOLUTE LYMPHOCYTES (AUTO) 2.5 10^3/uL (0.5-4.7); ABSOLUTE MONOCYTES (AUTO) 0.6 10^3/uL (0.1-1.4); ABSOLUTE NEUT (AUTO) 4.2 10^3/uL (1.7-8.2); BASOPHILS % (AUTO) 0.5 % (0-2); EOSINOPHILS % (AUTO) 1.1 % (0-6); HEMATOCRIT 43.3 % (36.0-47.0); HEMOGLOBIN 14.9 g/dL (12.0-15.5); LYMPHOCYTES % (AUTO) 33.3 % (13-45); MEAN CORPUSCULAR HEMOGLOBIN 31.7 pg (27.0-33.4); MEAN CORPUSCULAR HGB CONC 34.5 g/dL (32.0-36.0); MEAN CORPUSCULAR VOLUME 92 fl (80-97); MONOCYTES % (AUTO) 7.7 % (3-13); PLATELET COUNT 178 10^3/uL (150-450); RED BLOOD COUNT 4.71 10^6/uL (3.72-5.28); RED CELL DISTRIBUTION WIDTH 14.3 % (11.5-14.0); SEGMENTED NEUTROPHILS % (AUTO) 57.4 % (42-78); TOTAL CELLS COUNTED % (AUTO) 100 %; WHITE BLOOD COUNT 7.4 10^3/uL (4.0-10.5)
[2019-10-13 21:50] LABS: ALBUMIN 4.5 g/dL (3.5-5.0); ALKALINE PHOSPHATASE 68 U/L (38-126); ANION GAP 10 (5-19); ASPARTATE AMINO TRANSFERASE 33 U/L (14-36); BILIRUBIN,DIRECT 0.3 mg/dL (0.0-0.4); BILIRUBIN,TOTAL 0.8 mg/dL (0.2-1.3); BLOOD UREA NITROGEN 11 mg/dL (7-20); CALCIUM 9.4 mg/dL (8.4-10.2); CARBON DIOXIDE 31 mmol/L (22-30); CHLORIDE 99 mmol/L (98-107); GLUCOSE 91 mg/dL (75-110); POTASSIUM 3.1 mmol/L (3.6-5.0); TOTAL PROTEIN 8.2 g/dL (6.3-8.2)
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
[2019-10-13 23:01] LABS: BACTERIA (WET MOUNT) 4+ BACTERIA SEEN; EPITHELIALS (WET MOUNT) 4+ EPITHELIALS SEEN; RBCS (WET MOUNT) 1+ RBCS SEEN; T.VAGINALIS (WET MOUNT) NO TRICHOMONAS SEEN; WBCS (WET MOUNT) 1+ WBCS SEEN; YEAST (WET MOUNT) NO YEAST SEEN
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
[2019-10-13] MEDS ORDERED: CEFTRIAXONE INJ 250 MG VIAL IM ONE (23:07)
[2019-10-13] MEDS ORDERED: AZITHROMYCIN 250 MG TABLET PO ONE (23:08)
[2019-10-14 00:22] VITALS: BP 168/108
[2019-10-14 00:22] LABS: CHLAM PCR DETECTED (NOT DETECT)
== END 2019-10-14 00:19 | disposition home or self-care (01) ==
LOC: ER 20:08
DX: T76.21XA Adult sexual abuse, suspected, initial encounter (principal); S12.8XXA Fracture of other parts of neck, initial encounter; Y08.89XA Assault by other specified means, initial encounter; R10.2 Pelvic and perineal pain; R11.0 Nausea; F17.200 Nicotine dependence, unspecified, uncomplicated; F32.9 Major depressive disorder, single episode, unspecified; Z79.899 Other long term (current) drug therapy
CPT/HCPCS: 36415; 87210; 85025; 81025; 80053; 81001; 87491; 87591; 70491; J0696; 96372; 99285

== ENCOUNTER 2019-11-15 07:53 | Emergency (ER) | payer SELFPAY ==
[2019-11-15 08:29] LABS: APPEARANCE,URINE CLEAR; BILIRUBIN,URINE NEGATIVE (NEGATIVE); COLOR,URINE STRAW; GLUCOSE, URINE NEGATIVE (NEGATIVE); KETONES,URINE NEGATIVE (NEGATIVE); LEUKOCYTE ESTERASE,URINE NEGATIVE (NEGATIVE); NITRITE,URINE NEGATIVE (NEGATIVE); PROTEIN,URINE NEGATIVE (NEGATIVE); UROBILINOGEN,URINE NEGATIVE mg/dL (<2.0)
[2019-11-15 08:51] LABS: ABSOLUTE EOSINOPHILS # (AUTO) 0.2 10^3/uL (0.0-0.6); ABSOLUTE LYMPHOCYTES (AUTO) 1.7 10^3/uL (0.5-4.7); ABSOLUTE MONOCYTES (AUTO) 0.5 10^3/uL (0.1-1.4); ABSOLUTE NEUT (AUTO) 4.1 10^3/uL (1.7-8.2); BASOPHILS % (AUTO) 0.4 % (0-2); EOSINOPHILS % (AUTO) 2.8 % (0-6); HEMATOCRIT 40.1 % (36.0-47.0); HEMOGLOBIN 14.2 g/dL (12.0-15.5); LYMPHOCYTES % (AUTO) 26.5 % (13-45); MEAN CORPUSCULAR HEMOGLOBIN 32.9 pg (27.0-33.4); MEAN CORPUSCULAR HGB CONC 35.3 g/dL (32.0-36.0); MEAN CORPUSCULAR VOLUME 93 fl (80-97); MONOCYTES % (AUTO) 7.1 % (3-13); PLATELET COUNT 170 10^3/uL (150-450); RED BLOOD COUNT 4.31 10^6/uL (3.72-5.28); SEGMENTED NEUTROPHILS % (AUTO) 63.2 % (42-78); TOTAL CELLS COUNTED % (AUTO) 100 %; WHITE BLOOD COUNT 6.5 10^3/uL (4.0-10.5)
[2019-11-15] MEDS ORDERED: AMLODIPINE BESYLATE 10 MG TABLET PO ONE (09:03)
[2019-11-15] MEDS ORDERED: HYDROCHLOROTHIAZIDE 25 MG TABLET PO ONE (09:04)
--- NOTE | 2019-11-15 09:08 | ER Document Report ---
ED GI/ - General Chief Complaint: Vaginal Bleeding Stated Complaint: VAGINAL BLEEDING/ABDOMINAL CRAMPS Time Seen by Provider: 11/15/19 08:57 Primary Care Provider: CUONG NICE MD [ACTIVE STAFF] - Follow up as needed Notes: CHIEF COMPLAINT: Vaginal bleeding for 3 weeks HPI: 39-year-old female presenting to the emergency department complaining of intermittent vaginal bleeding for 3 weeks. Some days will be spotting some days bleeding is heavier. Reports left pelvic pain over the last week. Has not seen her PCP for evaluation of this issue. Patient also complaining of elevated blood pressure. No chest pain shortness of breath. Patient states she does not check her blood pressure at home. States she is on HCTZ which she did not take today. Patient states that when she goes to the doctor's office her blood pressure usually runs in the 160/120 range. Patient does report a vaginal odor but no discharge ROS: See HPI - all other systems were reviewed and are otherwise negative Constitutional: no fever or recent illness Eyes: no drainage, no blurred vision ENT: no runny nose, no sore throat Cardiovascular: no chest pain Resp: no SOB, no cough GI: no vomiting, no diarrhea : no dysuria, no vaginal discharge, positive vaginal bleeding, positive vaginal odor Integumentary: no rash Allergy: no hives Musculoskeletal: no extremity pain or swelling Neurological: no numbness/tingling, no weakness MEDICATIONS: I agree with the patient medications as charted by the RN. ALLERGIES: I agree with the allergies as charted by the RN. PAST MEDICAL HISTORY/PAST SURGICAL HISTORY: Reviewed and agree as charted by RN. SOCIAL HISTORY: Reviewed and agree as charted by RN. FAMILY HISTORY: No significant familial comorbid conditions directly related to patient complaint EXAM: Reviewed vital signs as charted by RN. CONSTITUTIONAL: Alert and oriented and responds appropriately to questions. Well-appearing; well-nourished, no acute distress HEAD: Normocephalic; atraumatic EYES: PERRL; Conjunctivae clear, sclerae non-icteric ENT: normal nose; no rhinorrhea; moist mucous membranes; pharynx without lesions noted NECK: Supple without meningismus; non-tender; no cervical lymphadenopathy, no masses CARD: RRR; no murmurs, no clicks, no rubs, no gallops; symmetric distal pulses RESP: Normal chest excursion without splinting or tachypnea; breath sounds clear and equal bilaterally; no wheezes, no rhonchi, no rales, ABD/GI: Normal bowel sounds; non-distended; soft, mild tenderness through the krause prapubic and left pelvic region on palpation, no rebound, no guarding; no palpable organomegaly or masses : 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 External genitalia normal. No skin lesions noted. Pelvic Exam: No active bleeding. Thick greenish vaginal discharge is noted. Cervix appears normal. No CMT. No lesions or masses. Uterus normal size and mildly tender. Right/Left adnexa normal size and mildly tender in the left adnexa. BACK: The back appears normal and is non-tender to palpation, there is no CVA tenderness EXT: Normal ROM in all joints; non-tender to palpation; no cyanosis, no effusions, no edema SKIN: Normal color for age and race; warm; dry; good turgor; no acute lesions noted NEURO: Moves all extremities equally; Motor and sensory function intact PSYCH: The patient's mood and manner are appropriate. Grooming and personal hygiene are appropriate. MDM: 39-year-old female presenting with 3 weeks of intermittent vaginal bleeding multiple vaginal odor, has a greenish vaginal discharge. Mild tenderness in the left adnexa will obtain ultrasound to evaluate for cyst that she has a history of ovarian cysts. TRAVEL OUTSIDE OF THE [place] IN LAST 30 DAYS: No - Related Data Allergies/Adverse Reactions: No Known Allergies Allergy (Verified 11/15/19 08:00) Home Medications: HCTZ Past Medical History - Social History Smoking Status: Current Every Day Smoker Family History: Reviewed & Not Pertinent Patient has suicidal ideation: No Patient has homicidal ideation: No - Past Medical History Cardiac Medical History: Reports: Hx Hypertension - not on meds Renal/ Medical History: Denies: Hx Peritoneal Dialysis Psychiatric Medical History: Reports: Hx Depression Past Surgical History: Reports: Hx Cholecystectomy, Hx Tubal Ligation - Immunizations Hx Diphtheria, Pertussis, Tetanus Vaccination: Yes Physical Exam - Vital signs Vitals: Temp Pulse Resp BP Pulse Ox 98.6 F 81 18 164/114 H 100 11/15/19 07:57 11/15/19 07:57 11/15/19 07:57 11/15/19 07:57 11/15/19 07:57 Course - Re-evaluation Re-evalutation: 11/15/19 11:10 Ultrasound shows a 2.1 cm left ovarian cyst. Patient also appears to have vaginitis. Will place patient on Flagyl, naproxen, follow-up [employer] 11/15/19 11:10 11/15/19 11:12 Patient was noted to be initially hypertensive with history of same, will have nursing recheck blood pressure prior to discharge 11/15/19 11:44 Patient's blood pressures improved, 184/84. Will discharge home with a prescription for Norvasc 5 mg in addition to her current hydrochlorothiazide.. I discussed the evaluation results with the patient. - Vital Signs Vital signs: Temp Pulse Resp BP Pulse Ox 98.6 F 81 18 182/92 H 100 11/15/19 07:57 11/15/19 07:57 11/15/19 07:57 11/15/19 11:42 11/15/19 07:57 - Laboratory Result Diagrams: 11/15/19 08:30 11/15/19 08:30 Laboratory results interpreted by me: 11/15/19 11/15/19 08:30 08:30 RDW 15.0 H Creatinine 0.42 L Discharge - Discharge Clinical Impression: Abnormal vaginal bleeding, Left ovarian cyst Vaginitis Qualifiers: Chronicity: acute Qualified Code(s): N76.0 - Acute vaginitis Hypertension Qualifiers: Hypertension type: essential hypertension Qualified Code(s): I10 - Essential (primary) hypertension Condition: Stable Disposition: HOME, SELF-CARE Additional Instructions: Take the medications as prescribed. Continue the hydrochlorothiazide as previously prescribed. I have added Norvasc 5 mg daily to your regimen given the continued elevated blood pressures, you need to obtain a primary care provider for further management of your blood pressure issues. Also follow-up with [employer] with regards to the ovarian cyst and vaginitis as well as the abnormal vaginal bleeding Prescriptions: Metronidazole [Flagyl 500 mg Tablet] 500 mg PO BID #14 tablet Naproxen 500 mg PO BID PRN #14 tablet PRN Reason: Amlodipine Besylate [Norvasc 5 mg Tablet] 5 mg PO DAILY #30 tablet Referrals: CUONG NICE MD [ACTIVE STAFF] - Follow up as needed
[2019-11-15 09:12] LABS: ALKALINE PHOSPHATASE 62 U/L (38-126); ANION GAP 6 (5-19); ASPARTATE AMINO TRANSFERASE 24 U/L (14-36); BILIRUBIN,DIRECT 0.2 mg/dL (0.0-0.4); BILIRUBIN,TOTAL 0.7 mg/dL (0.2-1.3); BLOOD UREA NITROGEN 9 mg/dL (7-20); CALCIUM 8.5 mg/dL (8.4-10.2); CARBON DIOXIDE 27 mmol/L (22-30); CHLORIDE 107 mmol/L (98-107); GLUCOSE 93 mg/dL (75-110); POTASSIUM 4.4 mmol/L (3.6-5.0); TOTAL PROTEIN 7.5 g/dL (6.3-8.2)
[2019-11-15 09:40] LABS: T.VAGINALIS (WET MOUNT) NO TRICHOMONAS SEEN; YEAST (WET MOUNT) NO YEAST SEEN
[2019-11-15 09:41] LABS: RBCS (WET MOUNT) NO RBCS SEEN; WBCS (WET MOUNT) FEW WBCS SEEN
[2019-11-15 09:42] LABS: BACTERIA (WET MOUNT) 4+ BACTERIA SEEN; EPITHELIALS (WET MOUNT) 3+ EPITHELIALS SEEN
--- NOTE | 2019-11-15 11:06 | RADIOLOGY REPORT (SQ) ---
EXAM DESCRIPTION: U/S NON OB PEL W/DOPPLER COMPLETED DATE/TIME: 11/15/2019 10:38 am REASON FOR STUDY: pelvic COMPARISON: None. TECHNIQUE: Dynamic and static grayscale images acquired of the pelvis via transabdominal approach an d recorded on PACS. Additional selected color Doppler and spectral images recorded. LIMITATIONS: None. FINDINGS: UTERUS: Unremarkable in size and contour measuring 8.8 x 4.6 x 5.9 cm. ENDOMETRIAL STRIPE: Endometrial stripe is visualized measuring 7 mm. No focal thickening. CERVIX: No nabothian cysts. RIGHT OVARY AND DOPPLER: Normal size measuring 3.6 x 2.3 x 3.7 cm. There is a cystic lesion measurin g 2.0 x 1.4 x 2.1 cm, likely dominant follicle. No follow-up required. No worrisome masses. Normal arterial vascular flow without evidence for torsion. LEFT OVARY AND DOPPLER: Normal size measuring 2.7 x 2.8 x 2.3 cm. No worrisome masses. Normal arteria l vascular flow without evidence for torsion. FREE FLUID: None noted. OTHER: No other significant finding. IMPRESSION: Unremarkable pelvic ultrasound. 2.1 cm dominant left ovarian follicle. No follow-up required. TECHNICAL DOCUMENTATION: JOB ID: [id number] 2010 [employer]- All Rights Reserved Rev-01/19 Reading location - IP/workstation name: [email or web address]
[2019-11-15] MEDS ORDERED: METRONIDAZOLE 500 MG TABLET PO ONE (11:11)
[2019-11-15 11:12] LABS: CHLAM PCR NOT DETECTED (NOT DETECT)
[2019-11-15] MEDS ORDERED: NAPROXEN 250 MG TABLET PO ONE (11:12)
[2019-11-15 11:43] VITALS: BP 182/92
== END 2019-11-15 12:01 | disposition home or self-care (01) ==
LOC: ER 07:53
DX: N83.202 Unspecified ovarian cyst, left side (principal); N76.0 Acute vaginitis; N93.9 Abnormal uterine and vaginal bleeding, unspecified; I10 Essential (primary) hypertension; R10.9 Unspecified abdominal pain; R10.2 Pelvic and perineal pain; Z79.899 Other long term (current) drug therapy; F17.200 Nicotine dependence, unspecified, uncomplicated
CPT/HCPCS: 36415; 76856; 80053; 81001; 81025; 83690; 85025; 87210; 87491; 87591; 93976; 99284

== ENCOUNTER 2020-06-13 14:12 | Emergency (ER) | payer BC ==
--- NOTE | 2020-06-13 14:35 | ER Document Report ---
ED Medical Screen (RME) - General Chief Complaint: Abdominal Pain Stated Complaint: CHEST PAIN Time Seen by Provider: 06/13/20 14:23 Notes: HPI: 40-year-old female presenting to the emergency department complaining of sudden onset of lower abdominal pain no more focal on the left side with radiation of the pain into her chest. Reports of shortness of breath pain is worse with position and movement has not had fever nausea vomiting PHYSICAL EXAMINATION: Tenderness across the lower abdomen and on the left lower quadrant left upper quadrant on palpation. Lung sounds are clear to auscultation regular rate and rhythm. Mild tachycardia with a ventricular of 103 on the EKG without other significant ectopy I have greeted and performed a rapid initial assessment of this patient. A comprehensive ED assessment and evaluation of the patient, analysis of test results and completion of medical decision making process will be conducted by an additional ED providers. TRAVEL OUTSIDE OF THE [place] IN LAST 30 DAYS: No - Related Data Allergies/Adverse Reactions: No Known Allergies Allergy (Verified 06/13/20 14:24) Past Medical History - Past Medical History Cardiac Medical History: Reports: Hx Hypertension - not on meds Renal/ Medical History: Denies: Hx Peritoneal Dialysis Psychiatric Medical History: Reports: Hx Depression Past Surgical History: Reports: Hx Cholecystectomy, Hx Tubal Ligation - Immunizations Hx Diphtheria, Pertussis, Tetanus Vaccination: Yes Physical Exam - Vital signs Vitals: Temp Pulse Resp BP Pulse Ox 99.6 F 107 H 16 176/96 H 99 06/13/20 14:20 06/13/20 14:20 06/13/20 14:20 06/13/20 14:20 06/13/20 14:20 Course - Vital Signs Vital signs: Temp Pulse Resp BP Pulse Ox 99.6 F 107 H 16 176/96 H 99 06/13/20 14:20 06/13/20 14:20 06/13/20 14:20 06/13/20 14:20 06/13/20 14:20
[2020-06-13 15:04] LABS: ABSOLUTE BASOPHILS # (AUTO) 0.1 10^3/uL (0.0-0.2); ABSOLUTE EOSINOPHILS # (AUTO) 0.1 10^3/uL (0.0-0.6); ABSOLUTE LYMPHOCYTES (AUTO) 1.2 10^3/uL (0.5-4.7); ABSOLUTE MONOCYTES (AUTO) 0.8 10^3/uL (0.1-1.4); ABSOLUTE NEUT (AUTO) 9.5 10^3/uL (1.7-8.2); BASOPHILS % (AUTO) 0.4 % (0-2); EOSINOPHILS % (AUTO) 0.4 % (0-6); HEMATOCRIT 41.7 % (36.0-47.0); HEMOGLOBIN 14.6 g/dL (12.0-15.5); LYMPHOCYTES % (AUTO) 10.4 % (13-45); MEAN CORPUSCULAR HEMOGLOBIN 32.7 pg (27.0-33.4); MEAN CORPUSCULAR HGB CONC 35.1 g/dL (32.0-36.0); MEAN CORPUSCULAR VOLUME 93 fl (80-97); MONOCYTES % (AUTO) 7.2 % (3-13); PLATELET COUNT 146 10^3/uL (150-450); RED BLOOD COUNT 4.48 10^6/uL (3.72-5.28); RED CELL DISTRIBUTION WIDTH 13.7 % (11.5-14.0); SEGMENTED NEUTROPHILS % (AUTO) 81.6 % (42-78); TOTAL CELLS COUNTED % (AUTO) 100 %; WHITE BLOOD COUNT 11.7 10^3/uL (4.0-10.5)
[2020-06-13 15:10] LABS: AMORPHOUS SEDIMENT,URINE TRACE /HPF; APPEARANCE,URINE CLOUDY; BILIRUBIN,URINE NEGATIVE (NEGATIVE); COLOR,URINE YELLOW; GLUCOSE, URINE NEGATIVE (NEGATIVE); KETONES,URINE NEGATIVE (NEGATIVE); LEUKOCYTE ESTERASE,URINE LARGE (NEGATIVE); NITRITE,URINE POSITIVE (NEGATIVE); PROTEIN,URINE 100 mg/dL (NEGATIVE); URINE SPECIFIC GRAVITY 1.016
[2020-06-13 15:23] LABS: ALKALINE PHOSPHATASE 68 U/L (38-126); ANION GAP 8 (5-19); ASPARTATE AMINO TRANSFERASE 21 U/L (14-36); BILIRUBIN,DIRECT 0.3 mg/dL (0.0-0.4); BILIRUBIN,TOTAL 0.6 mg/dL (0.2-1.3); BLOOD UREA NITROGEN 9 mg/dL (7-20); CALCIUM 8.8 mg/dL (8.4-10.2); CARBON DIOXIDE 28 mmol/L (22-30); CHLORIDE 103 mmol/L (98-107); GLUCOSE 91 mg/dL (75-110); POTASSIUM 3.5 mmol/L (3.6-5.0); TOTAL PROTEIN 7.2 g/dL (6.3-8.2)
[2020-06-13] MEDS ORDERED: CEFTRIAXONE 1 GM/D5W RTU 50 ML IV ONE (16:05)
[2020-06-13] MEDS ORDERED: KETOROLAC TROMETHAMINE INJ/PF 30 MG/1 ML SDV IV ONE (16:07)
[2020-06-13] MEDS ORDERED: CEFTRIAXONE 1 GM/D5W RTU 1 GM/50 ML RTUPB IV ONE (16:14)
--- NOTE | 2020-06-13 17:25 | RADIOLOGY REPORT (SQ) ---
EXAM DESCRIPTION: CT ABD/PELVIS WITH IV ONLY IMAGES COMPLETED DATE/TIME: 06/13/2020 5:10 pm REASON FOR STUDY: generalized abd pain COMPARISON: None. TECHNIQUE: CT scan of the abdomen and pelvis performed using helical scanning technique with dynamic intravenous contrast injection. No oral contrast. Images reviewed with lung, soft tissue, and bone windows. Reconstructed coronal and sagittal MPR images reviewed. Delayed images for evaluation of the urinary system also acquired. All images stored on PACS. All CT scanners at this facility use dose modulation, iterative reconstruction, and/or weight based d osing when appropriate to reduce radiation dose to as low as reasonably achievable (ALARA). [facility]: Dose Right [facility]: CareDose [facility]: Dose Right [facility]: Teradose 4D [facility]: Prezi CONTRAST TYPE AND DOSE: contrast/concentration: Isovue 350.00 mmol/ml; Total Contrast Delivered: 67. 0 ml; Total Saline Delivered: 65.0 ml RENAL FUNCTION: GFR > 60. RADIATION DOSE: CT Rad equipment meets quality standard of care and radiation dose reduction techniq ues were employed. CTDIvol: 4.8 - 5.2 mGy. DLP: 472 mGy-cm.. LIMITATIONS: None. FINDINGS: LOWER CHEST: No significant findings. No nodules or infiltrates. LIVER: Normal size. No masses. No dilated ducts. SPLEEN: Normal size. No focal lesions. PANCREAS: No masses. No significant calcifications. No adjacent inflammation or peripancreatic fluid collections. Pancreatic duct not dilated. GALLBLADDER: Surgically absent. ADRENAL GLANDS: No significant masses or asymmetry. RIGHT KIDNEY AND URETER: Small cysts. No solid masses. No significant calcifications. No hydrone phrosis or hydroureter. LEFT KIDNEY AND URETER: No solid masses. No significant calcifications. No hydronephrosis or hydr oureter. AORTA AND VESSELS: No aneurysm. No dissection. Renal arteries, SMA, celiac without stenosis. RETROPERITONEUM: No retroperitoneal adenopathy, hemorrhage or masses. BOWEL AND PERITONEAL CAVITY: No masses or inflammatory changes. No free fluid or peritoneal masses. APPENDIX: Not visualized. PELVIS: Tubal ligation clips. No mass. No free fluid. Normal bladder. ABDOMINAL WALL: No masses. No hernias. BONES: No significant or acute findings. OTHER: No other significant finding. IMPRESSION: NO SIGNIFICANT OR ACUTE FINDING IN THE ABDOMEN OR PELVIS ON CT SCAN WITH IV CONTRAST. TECHNICAL DOCUMENTATION: JOB ID: [id number] Quality ID # [id number]: Final reports with documentation of one or more dose reduction techniques (e.g., Au tomated exposure control, adjustment of the mA and/or kV according to patient size, use of iterative reconstruction technique) 2010 [employer]- All Rights Reserved Reading location - IP/workstation name: [email or web address]
[2020-06-13 17:51] VITALS: BP 161/97
--- NOTE | 2020-06-13 18:10 | ER Document Report ---
ED General - General Chief Complaint: Abdominal Pain Stated Complaint: CHEST PAIN Time Seen by Provider: 06/13/20 14:23 Primary Care Provider: NIRAV RIGGS [Primary Care Provider] - Follow up as needed Notes: Patient is a 40-year-old white female with no reported past medical history who presents the emergency department today accompanied by her significant other with a chief complaint of lower abdominal pain that began this morning. She states the pain is sharp in nature primarily in the left lower quadrant. She states that occasionally radiates to the chest and when it does it gives her a shortness of breath sensation. Reports that it takes her breath away. Denies any prior history of pains like this. She is unsure of any urinary symptoms. Denies any diarrhea or constipation. No nausea or vomiting. No fevers. No recent travel or known sick contacts. TRAVEL OUTSIDE OF THE [place] IN LAST 30 DAYS: No - Related Data Allergies/Adverse Reactions: No Known Allergies Allergy (Verified 06/13/20 14:24) Past Medical History - Social History Smoking Status: Current Every Day Smoker Family History: Reviewed & Not Pertinent - Past Medical History Cardiac Medical History: Reports: Hx Hypertension - not on meds Renal/ Medical History: Denies: Hx Peritoneal Dialysis Psychiatric Medical History: Reports: Hx Depression Past Surgical History: Reports: Hx Cholecystectomy, Hx Tubal Ligation - Immunizations Hx Diphtheria, Pertussis, Tetanus Vaccination: Yes Review of Systems - Review of Systems Constitutional: denies: Fever EENT: denies: Nose pain Cardiovascular: denies: Syncope Respiratory: denies: Sputum Gastrointestinal: denies: Constipation Genitourinary: denies: Flank pain Female Genitourinary: denies: Irregular period Musculoskeletal: denies: Muscle pain Skin: denies: Lesions Hematologic/Lymphatic: denies: Easy bleeding Neurological/Psychological: denies: Paralysis Physical Exam - Vital signs Vitals: Temp Pulse Resp BP Pulse Ox 99.6 F 107 H 16 176/96 H 99 06/13/20 14:20 06/13/20 14:20 06/13/20 14:20 06/13/20 14:20 06/13/20 14:20 - General General appearance: Appears well, Alert In distress: None - Respiratory Respiratory status: No respiratory distress Chest status: Nontender Breath sounds: Normal Chest palpation: Normal - Cardiovascular Rhythm: Regular Heart sounds: Normal auscultation Murmur: No - Abdominal Inspection: Normal Distension: No distension Bowel sounds: Normal Tenderness: Tender - Left lower quadrant and suprapubic region Organomegaly: No organomegaly - Back Back: CVA tenderness - Bilateral - Neurological Neuro grossly intact: Yes Cognition: Normal Orientation: AAOx4 - Psychological Associated symptoms: Normal affect, Normal mood - Skin Skin Temperature: Warm Skin Moisture: Dry Skin Color: Normal Course - Re-evaluation Re-evalutation: 06/13/20 18:07 CT scan negative for acute process per radiologist. Laboratory studies mostly normal, urinalysis significant for urinary infection. Patient was given Rocep hin IV here. Will be sent home on Bactrim and Pyridium. Encouraged push clear fluids. Discussed with her importance of outpatient follow-up and advised to return here or any ER immediately with any new, persistent or worsening symptoms. She and her significant other verbalized understood and agreed. - Vital Signs Vital signs: Temp Pulse Resp BP Pulse Ox 99.8 F 105 H 16 161/97 H 100 06/13/20 17:50 06/13/20 17:50 06/13/20 14:20 06/13/20 17:50 06/13/20 17:50 - Laboratory Result Diagrams: 06/13/20 14:46 06/13/20 14:46 Laboratory results interpreted by me: 06/13/20 06/13/20 06/13/20 14:46 14:46 14:46 WBC 11.7 H Plt Count 146 L Lymph % (Auto) 10.4 L Absolute Neuts (auto) 9.5 H Seg Neutrophils % 81.6 H Potassium 3.5 L Urine Protein 100 H Urine Blood MODERATE H Urine Nitrite POSITIVE H Urine Urobilinogen 2.0 H Ur Leukocyte Esterase LARGE H Discharge - Discharge Clinical Impression: Urinary tract infection Qualifiers: Urinary tract infection type: site unspecified Hematuria presence: with hematuria Qualified Code(s): N39.0 - Urinary tract infection, site not specified; R31.9 - Hematuria, unspecified Condition: Stable Disposition: HOME, SELF-CARE Instructions: Abdominal Pain ([facility]), Urinary Tract Infection ([facility]) Additional Instructions: Follow-up with your regular doctor in 2 to 3 days for reevaluation. Return here or any ER immediately with any new, persistent or worsening symptoms. Prescriptions: Sulfamethoxazole/Trimethoprim [Bactrim Ds Tablet] 1 each PO BID #20 tablet Phenazopyridine HCl [Pyridium 100 Mg Tablet] 200 mg PO TID PRN #6 tablet PRN Reason: Referrals: LOCALMD,NO [Primary Care Provider] - Follow up as needed [facility] [NO LOCAL MD] - Follow up as needed
--- NOTE | 2020-06-13 21:53 | EKG REPORT ---
SEVERITY:- BORDERLINE ECG - SINUS TACHYCARDIA PROBABLE LEFT ATRIAL ABNORMALITY : Confirmed by: Rosa Atwood MD 13-Jun-2020 21:53:29
== END 2020-06-13 18:17 | disposition home or self-care (01) ==
LOC: ER 14:12
DX: N39.0 Urinary tract infection, site not specified (principal); R31.9 Hematuria, unspecified; R10.32 Left lower quadrant pain; R10.814 Left lower quadrant abdominal tenderness; R07.9 Chest pain, unspecified; F17.200 Nicotine dependence, unspecified, uncomplicated; I10 Essential (primary) hypertension; Z90.49 Acquired absence of other specified parts of digestive tract; Z98.51 Tubal ligation status
CPT/HCPCS: 93005; 99285; 96375; 96365; 36415; 87086; 83690; 84703; 85025; 87088; 80053; 81001; 84484; 87186; 74177; 93010; J1885; J0696